=== PATIENT | male | born 1965 | race Caucasian/White ===

== ENCOUNTER 2021-07-26 11:20 | Emergency (ER) | payer OTHER ==
[~2021-07-26] VITALS: Ht 170.2 cm; Wt 117.9 kg
--- NOTE | ~2021-07-26 | EMS ---
[address] [address] EMS Patient Care Report Name: SHARI BOCANEGRA Room: [facility] Lani#: [id number] Admission: 07/26/21 Attend Phys: Discharge: 07/26/21 Date of : 65 Report #: [id number] THIS REPORT FOR: //name// Report Transmitted: 07/26/2021 19:24 EMS Care Summary [facility] Incident 1097 @ 07/26/2021 10:36 Incident Location [address] [place] [address] Patient SHARI BOCANEGRA Male, 56 Years 1965 Patient Address [address] [place], [place] [id number] Patient History Hypertension (HTN), Patient Allergies No known allergies, Patient Medications Losartan, Atorvastatin, Cialis, Carvedilol, Amlodipine / olmesartan, Chief Complaint Fainting/Syncope Disposition Transported No Lights/[place] Dispatch Reason Unconscious/Fainting Transported To [facility] Narrative UPON OUR ARRIVAL THE PT WAS FOUND LAYING IN A SEMI MELO'S POSITION ON AN EXAM BED, THE PT WAS ALERT AND ORIENTED TO OUR PRESENCE. THE PT'S PCP STATED THAT HE HAD A SYNCOPAL EPISODE AND STARTED TO FALL OFF OF THE EXAM TABLE, THE PT'S B/P AT THIS TIME WAS REPORTED TO BE 70 SYSTOLIC. WE OBTAINED VITALS AND PLACED THE [address] [address] EMS Patient Care Report Name: SHARI BOCANEGRA Room: [facility]#: [id number] Admission: 07/26/21 Attend Phys: Discharge: 07/26/21 Date of : 65 Report #: [id number] PT ONTO THE SPLICING TECHNICIAN TO OBTAIN A 12-LEAD. THE 12-LEAD SHOWED A REGULAR SINUS RHYTHM. THE PT HAD NO COMPLAINTS AT THIS TIME AND WAS FULLY ALERT AND ORIENTED WITH A GCS OF 15. THE PT STATED THAT HE DID NOT WISH TO GO TO THE HOSPITAL. I EXPLAINED TO HIM THAT BLOOD WORK COULD REVEAL WHY HE HAD A SYNCOPAL EVENT AND ASKED HIM TO GO, THE PT DECLINED. THE PT SPOKE TO HIS GIRLFRIEND ON THE PHONE WE WERE FINISHING UP OUR ASSESSMENT. WE PERFORMED ORTHOSTATIC B/P'S BOTH SITTING AND STANDING BOTH OF THESE YIELDED A B/P OF 100/50. AFTER SPEAKING TO HIS GIRLFRIEND ON THE PHONE THE PT CHANGED HIS MIND AND STATED THAT HE WISHED TO GO TO THE HOSPITAL. THE PT WAS ASSISTED TO THE COT WHERE HE WAS SEATED AND PROPERLY SECURED USING THE STRAPS N THE COT PRIOR TO BEING MOVED TO THE AMBULANCE. ONCE ON THE AMBULANCE I OBTAINED VASCULAR ACCESS IN THE PT'S LEFT AC USING AN 18 GAUGE IV CATHETER. THE IV SITE WAS FLUSHED, PATENT, AND SECURED USING A SALINE LOCK CONNECTED TO A 1000 ML BAG OF LR THAT HAD BEEN WARMING UP. A DETAILED PHYSICAL EXAM YIELDED NO SIGNIFICANT FINDINGS. THE PT WAS CONTINUOUSLY MONITORED DURING TRANSPORT AND I OBTAINED A FULL SECOND SET OF VITALS PRIOR TO OUR ARRIVAL AT THE HOSPITAL. AT THE HOSPITAL THE PT WAS MOVED INDOORS VIA THE COT AND TAKEN TO TRIAGE. THE PT WAS ASSISTED TO A CHAIR. PT REPORT WAS GIVEN TO THE RN IN TRIAGE AND PT CARE WAS TRANSFERRED WITH NO SIGNIFICANT CHANGES IN THE PT'S STATUS OR CONDITION. ALL TIMES ARE APPROXIMATE. Initial Vitals @10:38Pain: 0/10, @11:14Pain: 0/10, @10:38SpO2: 98, @11:14SpO2: 95, @10:41 @10:38P: 64,R: 18,BP: 94/50, @11:14P: 70,R: 16,BP: 116/66, @10:38GCS: 15, @11:14GCS: 15, @10:38Glucose: 130, Assessments @10:38MENTAL:SKIN:HEENT:LUNG SOUNDS:ABDOMEN:PELVIS//GI:EXTREMITIES:PULSE:NEURO: Impression Syncope / Fainting Procedures @11:00 IV Therapy - cc () Site: Antecubital-Left Response: UnchangedSucceeded @10:41 12-Lead ECG Response: UnchangedSucceeded Timeline 09:51,[place] [address] EMS Patient Care Report Name: SHARI BOCANEGRA [id number] Admission: 07/26/21 Attend Phys: Discharge: 07/26/21 Date of : 65 Report #: [id number] 10:36,Dispatch Notified 10:36,Psap Call 10:36,Dispatched 10:36,En Route 10:36,On Scene 10:38,At Patient 10:38,BP: / M,PULSE: ,RR: R,SPO2: Ox,ETCO2: ,BG: ,PAIN: 0,GCS: , 10:38,BP: / M,PULSE: ,RR: R,SPO2: 98 Ox,ETCO2: ,BG: ,PAIN: ,GCS: , 10:38,BP: 94/50 M,PULSE: 64,RR: 18 R,SPO2: Ox,ETCO2: ,BG: ,PAIN: ,GCS: , 10:38,BP: / M,PULSE: ,RR: R,SPO2: Ox,ETCO2: ,BG: ,PAIN: ,GCS: 15, 10:38,BP: / M,PULSE: ,RR: R,SPO2: Ox,ETCO2: ,B,PAIN: ,GCS: , 10:41,12-Lead ECG,Response: UnchangedSucceeded, 10:41,BP: / M,PULSE: ,RR: R,SPO2: Ox,ETCO2: ,BG: ,PAIN: ,GCS: , 11:00,Depart Scene 11:00,IV Therapy - cc Site: Antecubital-Left,Response: UnchangedSucceeded, 11:14,BP: / M,PULSE: ,RR: R,SPO2: 95 Ox,ETCO2: ,BG: ,PAIN: ,GCS: , 11:14,BP: 116/66 M,PULSE: 70,RR: 16 R,SPO2: Ox,ETCO2: ,BG: ,PAIN: ,GCS: , 11:14,BP: / M,PULSE: ,RR: R,SPO2: Ox,ETCO2: ,BG: ,PAIN: ,GCS: 15, 11:14,BP: / M,PULSE: ,RR: R,SPO2: Ox,ETCO2: ,BG: ,PAIN: 0,GCS: , 11:17,At Destination 11:33,Call Closed Disclaimer v1.1 Copyright 2021 [employer] This EMS Care Summary contains data elements from the applicable legal record (which may be displayed differently). It is designed to provide pertinent information for the following purposes: continuity of care, clinical quality, and state data reporting. The complete legal record is available to ED staff and administrators of the receiving hospital in [facility]'s Patient Tracker. All data is provided "as is."
[~2021-07-26 11:20] MED LIST: ANDROGEL; CIALIS; ULTRAM 50MG TAB50 MG PO; [UNRECOGNIZED DRUG - REMARK]
[2021-07-26] MEDS ORDERED: COZAAR 25 MG TA25 M2 PO (11:40)
[2021-07-26] MEDS ORDERED: TESTOSTERONE PO (11:40)
[2021-07-26] MEDS ORDERED: CIALIS20 MG PO (11:41)
[2021-07-26] MEDS ORDERED: LIPITOR 20 MG T20 M1 PO (11:41)
[2021-07-26] MEDS ORDERED: NORVASC10 MG PO (11:41)
[2021-07-26] MEDS ORDERED: CARVEDILOL6.25 M1 PO (11:41)
[2021-07-26 12:22] LABS: ABSOLUTE BASOPHILS 0.1 thou/uL (0.0-0.2); ABSOLUTE EOSINOPHILS 0.1 thou/uL (0.0-0.7); ABSOLUTE LYMPHOCYTES 1.7 thou/uL (0.8-5.3); ABSOLUTE NEUTROPHILS 5.8 thou/uL (1.6-8.1); BASOPHILS 0.6 %; EOSINOPHILS 0.9 %; HEMATOCRIT 43.8 % (42.0-52.0); HEMOGLOBIN 14.7 gm/dL (14.0-18.0); LYMPHOCYTES 19.7 %; MCH 30.4 pg (26.0-34.0); MCHC 33.5 g/dL (28.0-37.0); MCV 90.9 fL (80.0-100.0); MONOCYTES 11.9 %; MPV 7.4 fl. (7.2-11.1); NUCLEATED RBCS 0 /100WBC; PLATELET COUNT* 217 thou/uL (150-400); POLYS 66.9 %; RBC 4.82 mil/uL (4.50-6.00); WBC 8.7 thou/uL (4.0-11.0)
[2021-07-26 12:25] LABS: URINE BILIRUBIN NEGATIVE (Negative); URINE BLOOD NEGATIVE (Negative); URINE CLARITY CLEAR; URINE COLOR YELLOW; URINE GLUCOSE-RANDOM NEGATIVE (Negative); URINE KETONES NEGATIVE (Negative); URINE LEUKOCYTES-REFLEX NEGATIVE (Negative); URINE NITRITE-REFLEX NEGATIVE (Negative); URINE PROTEIN TRACE (Negative); URINE SPECIFIC GRAVITY 1.015 (1.005-1.030)
[2021-07-26 12:30] LABS: CALCIUM 8.1 mg/dL (8.5-10.1); CREATININE 1.1 mg/dL (0.6-1.3); POTASSIUM 4.1 mmol/L (3.5-5.1)
[2021-07-26 12:40] LABS: ALBUMIN 3.5 g/dL (3.4-5.0); TOTAL BILIRUBIN 0.7 mg/dL (<0.1-1.0); TOTAL PROTEIN 6.6 g/dL (6.4-8.2)
[2021-07-26 13:09] VITALS: BP 104/67
--- NOTE | 2021-07-27 09:50 | EKG ---
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: : 1965 Requested By: Blas Edwards Order Number: [id number] MD: Felipe Gilmore Measurements Intervals [place] Rate: 69 P: 10 [place]: 155 QRS: -17 QRSD: 115 T: 9 QT: 401 QTc: 430 Interpretive Statements Sinus rhythm Nonspecific intraventricular conduction delay No previous ECG available for comparison Electronically Signed On 07-27-2021 9:49:55 ELECTRONIC TRANSACTION IMPLEMENTER by Felipe Gilmore [email or web address] <ELECTRONICALLY SIGNED> By: Felipe Gilmore MD, [facility] 07/27/21 0949 1153 1153 Felipe Gilmore MD, FACC /EPI
== END 2021-07-26 13:10 | disposition home or self-care (01) ==
LOC: M.ERS 11:20
PROVIDERS: Family Medicine
DX: R55 Syncope and collapse (principal); Z20.822 Contact with and (suspected) exposure to COVID-19; R09.81 Nasal congestion; R05.9 Cough, unspecified; Z90.49 Acquired absence of other specified parts of digestive tract; Z79.899 Other long term (current) drug therapy